=== PATIENT | male | born 1945 | race Caucasian/White ===

== ENCOUNTER 2022-02-07 18:23 | Emergency (ER) | payer MEDICARE, SELFPAY ==
[2022-02-07 18:57] VITALS: BP 119/58; PULSE 64; RESP 17; TEMP 37.4; O2SAT 95; BMI 34.4
--- NOTE | 2022-02-07 19:06 | HMH.EDUTC ---
[facility] Disposition Clinical Impression: Facial cellulitis, Abscess of face Disposition: Home, Self-Care Condition on Discharge: Good Instructions: Cellulitis, Boil Additional Instructions: Keep the wounds clean and dry. Follow up with your regular doctor. Take the antibiotics as directed and apply the topical antibiotics as directed. Watch the wounds for signs of worsening infection, such as worsening redness, drainage, swelling, etc. Any infection this close to your eyes and your brain can be dangerous. I recommend going to the ER if it is getting worse. GO TO THE ER FOR ANY WORSENING SYMPTOMS Prescriptions: Sulfamethoxazole/Trimethoprim [Bactrim DS tablet] 1 each PO BID 10 Days #20 tab Transmission Status: Received by [facility]/pharmacy #[id number] Mupirocin [Bactroban 2% Ointment 22gm tube] 1 applicatio TP TID 7 Days #1 gm Transmission Status: Received by [facility]/pharmacy #[id number] cephALEXin [cephALEXin 500mg capsule] 500 mg PO Q6H 10 Days #40 cap Transmission Status: Received by [facility]/pharmacy #[id number] Referrals: Provider,Referral, MD [Primary Care Provider] - Time of Disposition: 19:21 Medical Decision Making - Medical Records Medical records reviewed: No: I reviewed the patient's medical records. - Vaughn Inquiry Pt receiving controlled substance: No Vital Signs: 02/07/22 18:57 02/07/22 19:41 Temperature 99.4 F 99.4 F Temperature Source Oral Oral Pulse Rate 64 Pulse Rate [Left Radial] 64 Respiratory Rate 17 17 Blood Pressure 119/58 L Blood Pressure [Right Arm] 119/58 L Blood Pressure Mean [Right Arm] 78 02 Sat by Pulse Oximetry 95 Orders (Tests/Meds): ED MEDICATIONS Discontinued Medications Generic Name Dose Route Start Last Admin Trade Name Freq PRN Reason Stop Dose Admin Ceftriaxone Sodium 1 gm 02/07/22 19:14 02/07/22 19:29 Ceftriaxone 1gm Vial IM 02/07/22 19:15 1 gm ONCE ONE Administration Lidocaine HCl 0 ml 02/07/22 19:14 02/07/22 19:29 Lidocaine 1% 5ml Pf Vial IM 02/07/22 19:15 2 ml ONCE ONE Administration ORDERS Category Date Time Status Wound Culture and Gram Stain Stat Micro 02/07/22 19:15 Received [facility] HPI - General Stated complaint: rash on face Time Seen by Provider: 02/07/22 19:07 Description of Symptoms (Recalled from Triage Doc. by RN): patient comes in for rash that began last monday HEENT Symptoms (Recalled from RN notes): No Resp Symptoms (Recalled from RN notes): No Skin Symptoms (Recalled from RN notes): Yes MS Symptoms (Recalled from RN notes): No Functional Status (Recalled from RN notes): wnl - History of Present Illness Provider Complaint: He states that for the past 1 week he has had swelling and redness of his nose up to between his eyes. He denies any injury, but does state that this began after he was seen by his dentist. He denies any fever and chills. He denies that he is diabetic. - Related Data Previous Rx's Medication Instructions Recorded Mupirocin [Bactroban 2% Ointment 1 applicatio TP TID 7 Days #1 gm 02/07/22 22gm tube] Sulfamethoxazole/Trimethoprim 1 each PO BID 10 Days #20 tab 02/07/22 [Bactrim DS tablet] cephALEXin [cephALEXin 500mg 500 mg PO Q6H 10 Days #40 cap 02/07/22 capsule] Allergies Allergy/AdvReac Type Severity Reaction Status Date / Time INGREDIENT: NO KNOWN - NO Allergy Unknown Uncoded 08/15/17 15:34 KNOWN DRUG ALLERGY - Worker's Comp Is this a Worker's Comp case?: No [facility] History - Hepatitis A Screen Attestation statement:: This patient has been screened for Hepatitis A risk factors. I have reviewed the patient's past medical history: Yes ROS Obtained: Yes All systems reviewed & no additional complaints - Constitutional Constitutional: Denies chills, Denies fever(s) - Eyes Eyes: Denies blind spots, Denies blurry vision, Denies change in vision, Denies diplopia, Denies eye discharge, Denies itchy eyes - ENT Ears, Nose, Mouth, and Throat:
[2022-02-07 19:41] VITALS: BP 119/58; PULSE 64; RESP 17; TEMP 37.4
== END 2022-02-07 19:43 | disposition home or self-care (01) ==
PROVIDERS: Emergency Provider Nurse Practitioner Family
DX: L03.211 Cellulitis of face; L02.01 Cutaneous abscess of face
CPT/HCPCS: 87070; 87077; 87186; 87205; 96372; 99212; G0463; J0696

== ENCOUNTER 2022-02-09 18:57 | Emergency (ER) | payer MEDICARE, SELFPAY ==
[2022-02-09 18:59] VITALS: BP 111/67; PULSE 57; RESP 18; TEMP 36.6; O2SAT 94; BMI 34.4
--- NOTE | 2022-02-09 19:07 | ECG_ITS ---
APPROVED REPORT Exam: Resting ECG HR:58 bpm ECG Measurements Heart Rate 58 AXES AK 144 P 68 QRSd 79 QRS 66 QT 413 T 92 QTc 410 Conclusion SINUS BRADYCARDIA WITH SINUS ARRHYTHMIA NONSPECIFIC ST & T-WAVE ABNORMALITY BORDERLINE ECG UNCONFIRMED REPORT Electronically signed by : Jorge Sharp MD 02/11/2022 17:34:03
--- NOTE | 2022-02-09 19:35 | CT_ITS ---
PROCEDURE INFORMATION: Exam: CT Head Without Contrast Exam date and time: 02/09/2022 7:38 PM Age: 76 years old Clinical indication: Altered mental status/memory loss; Additional info: Altered mentation TECHNIQUE: Imaging protocol: Computed tomography of the head without contrast. Radiation optimization: All CT scans at this facility use at least one of these dose optimization techniques: automated exposure control; mA and/or kV adjustment per patient size (includes targeted exams where dose is matched to clinical indication); or iterative reconstruction. COMPARISON: No relevant prior studies available. FINDINGS: Brain: Moderate to severe volume loss. No acute intracranial hemorrhage. No midline shift or significant intracranial mass effect. 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 Cerebral ventricles: Ventriculomegaly is commensurate for degree of volume loss. Paranasal sinuses: [id number] paranasal sinus disease. Mastoid air cells: Visualized mastoid air cells are well aerated. Bones/joints: Unremarkable. No acute fracture. Soft tissues: Right periorbital and anterolateral scalp soft tissue swelling. There is left periorbital soft tissue swelling, however to a lesser degree. IMPRESSION: No acute intracranial abnormality.
[2022-02-09 19:43] LABS: Basophils # 0.2 K/mm3 (0-0.2); Basophils % 2.5 % (0.1-2.0); Eosinophils % 0.2 % (0.1-12.0); Hematocrit 43.3 % (42.0-52.0); Hemoglobin 14.6 g/dL (14.1-18.0); Lymphocytes # 1.3 K/mm3 (0.7-4.5); Lymphocytes % 22.2 % (10-50); Mean Corpuscular HGB Conc 33.7 g/dL (31.8-35.4); Mean Corpuscular Hemoglobin 31.8 pg (27.0-31.2); Mean Corpuscular Volume 94.2 fl (80-94); Mean Platelet Volume 9.6 fl (7.4-10.4); Monocytes # 0.4 K/mm3 (0.1-1.0); Monocytes % 5.9 % (1.7-9.3); Neutrophils % 69.1 % (37.0-80.0); Platelet Count 138 K/mm3 (142-424); Red Blood Count 4.59 M/mm3 (4.60-6.20); White Blood Count 5.9 K/mm3 (4.8-10.8)
[2022-02-09 19:48] LABS: Blood Urea Nitrogen 16 mg/dl (9-20); Calcium 8.6 mg/dl (8.4-10.2); Carbon Dioxide 25 mmol/L (22.0-30.0); Chloride 98 mmol/L (98-107); Creatinine Clearance Estimated 91 mL/min (50-200); Estimated Glomerular Filt Rate 65 ml/min (>60); GFR (African American) 79 ML/MIN (>60); Glucose 173 mg/dl (74-100); Magnesium 1.8 mg/dl (1.6-2.3); Sodium 131 mmol/L (136-145)
[2022-02-09 20:06] LABS: C-Reactive Protein 4.2 mg/L (0-4)
[2022-02-09 20:19] LABS: Troponin I < 0.01 ng/ml (0.00-0.034)
[2022-02-09 20:22] LABS: Procalcitonin 0.188 ng/mL (0.0-2.0); T4 (Thyroxine) 6.9 ug/dl (5.53-11.0)
[2022-02-09 20:36] LABS: Thyroid Stimulating Hormone 0.43 uIU/mL (0.465-4.68)
--- NOTE | 2022-02-09 20:53 | PC.NURSE ---
Pt tried multiple times to give urine sample and has been unable to.
--- NOTE | 2022-02-09 21:52 | HMH.EDWEAK ---
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 ocular complication detail: unspecified herpes zoster eye disease Qualified Code(s): B02.30 - Zoster ocular disease, unspecified Ingestion, drug, inadvertent or accidental Qualifiers: Encounter type: initial encounter Qualified Code(s): T50.901A - Poisoning by unspecified drugs, medicaments and biological substances, accidental (unintentional), initial encounter Disposition: Home, Self-Care Condition on Discharge: Good Instructions: DI for Shingles Additional Instructions: resume prev care Referrals: Chely Dumont [Primary Care Provider] - - Critical Care Critical Care Time: No Attestation: On 02/09/22, the high probability of a clinically significant, sudden or life threatening deterioration of the following system(s) required my full and direct attention, intervention and personal management. The time I documented below is in addition to time spent performing reported procedures but includes the following listed in this critical care notation. Medical Decision Making - Medical Records Medical records reviewed: Yes: I reviewed the patient's medical records. - Vaughn Inquiry Pt receiving controlled substance: No Vital Signs: 02/09/22 18:59 Temperature 97.9 F Temperature Source Oral Pulse Rate [Apical] 57 L Respiratory Rate 18 Blood Pressure [Right Arm] 111/67 Blood Pressure Mean [Right Arm] 81 Blood Pressure Source [Right Arm] Automatic Cuff Blood Pressure Position [Right Arm] Sitting 02 Sat by Pulse Oximetry 94 L Oxygen Delivery Method Room Air - Lab Data Lab results reviewed: Yes: I reviewed the patient's lab results. Lab Results 02/09/22 19:30: WBC 5.9, RBC 4.59 L, Hgb 14.6, Hct 43.3, MCV 94.2 H, MCH 31.8 H, MCHC 33.7, RDW 13.0, Plt Count 138 L, MPV 9.6, Neut % (Auto) 69.1, Lymph % (Auto) 22.2, [place] % (Auto) 5.9, Eos % (Auto) 0.2, Baso % (Auto) 2.5 H, Neut # (Auto) 4.0, Lymph # (Auto) 1.3, [place] # (Auto) 0.4, Eos # (Auto) 0.0, Baso # (Auto) 0.2, ESR 15 02/09/22 19:30: Sodium 131 L, Potassium 4.0, Chloride 98, Carbon Dioxide 25, Anion Gap 12.0, BUN 16, Creatinine 1.10, Estimated Creat Clear 91, Estimated GFR 65, Est GFR ( Amer) 79, Glucose 173 H, Calcium 8.6, Magnesium 1.8, Troponin I < 0.01, C-Reactive Protein 4.2 H, Procalcitonin 0.188, TSH 0.43 L, Thyroxine (T4) 6.9 Result diagrams: 02/09/22 19:30 02/09/22 19:30 Orders (Tests/Meds): ED MEDICATIONS Generic Name Dose Route Start Last Admin Trade Name Freq PRN Reason Stop Dose Admin Sodium Chloride 1,000 mls @ 999 mls/hr 02/09/22 19:45 02/09/22 20:04 Sod Chlor 0.9% 1000ml Bag IV 02/09/22 20:45 999 mls/hr .Q1H1M CASSANDRA Administration ORDERS Category Date Time Status Troponin I Q3H Lab 02/09/22 22:45 Ordered Troponin I Q3H Lab 02/10/22 01:45 Ordered UA [Urinalysis and Microscopic] Stat Lab 02/09/22 20:10 Ordered - CT Data CT Scan: Head Time Received: 22:[address] Reviewed: Yes: I have viewed the radiologist's interpretation Preliminary Findings: Normal/NAD - ECG Data Tracing #1 Normal Sinus Rhythm: Yes Ischemic changes: non-specific ST-T wave changes Medical Decision Narrative: stable exam with stable labs and ct and poison control cleared pt Weakness HPI - General Chief complaint: Weakness Stated complaint: Confused, unstable Time Seen by Provider: 02/09/22 21:52 Mode of Arrival: Ambulatory Source of Information: Patient, Relative, Medical Record Limitations: No Limitations Description of Symptoms (Recalled from ER Triage Doc. by RN): pt has right eye swelling with nose wound. dx c shingles monday at [facility]. given abx and steroids. Since then pt has had increased confusion and has difficulty walking. Patient also took his 11 am medications twice today because he is confused as to the time of day and forgot he had already taken them (flomax 0.4mg, levothyroxine 50
[2022-02-09 21:57] LABS: Erythrocyte Sedimentation Rate 15 mm/hr (0-20)
--- NOTE | 2022-02-09 22:09 | PC.NURSE ---
Spoke with Poison control to confirm double dosage of patients 1100 medications, patient took a 2nd dose of flomax, levothyroxine, nabutomine, bisoproll, rosuvastatin and duloxetine, however, patient remains within safe dosing levels. Poison control said that if patient can pass a po challenge patient and exhibits no symptoms he should be safe to dc home from their standpoint.
[2022-02-09 22:41] VITALS: BP 110/60; PULSE 60; RESP 18; TEMP 36.8; O2SAT 99
== END 2022-02-09 22:43 | disposition home or self-care (01) ==
PROVIDERS: Emergency Medicine; Emergency Provider Emergency Medicine; PCP Family Medicine
DX: T50.901A Poisoning by unspecified drugs, medicaments and biological substances, accidental (unintentional), initial encounter (principal); R53.1 Weakness; R41.0 Disorientation, unspecified; R26.2 Difficulty in walking, not elsewhere classified; B02.30 Zoster ocular disease, unspecified
CPT/HCPCS: 70450; 80048; 83735; 84145; 84436; 84443; 84484; 85025; 85651; 86140; 93005; 96360; 99284

== ENCOUNTER 2022-11-23 12:32 | Observation (INO) | payer MEDICARE, SELFPAY ==
[2022-11-23] VITALS (17 sets, daily range): BP systolic 89–147; BP diastolic 25–79; PULSE 57–74; RESP 18–20; TEMP 36.6–39.2; O2SAT 93–100; BMI 36.8; BMI 34.8
[2022-11-23 12:49] LABS: Microscopic, Urine URINE MICROSCOPIC (MICROSCOPIC)
[2022-11-23 12:53] LABS: Appearance,Urine CLEAR (Clear); Blood, Urine 3+ (Negative); Color,Urine YELLOW (Yellow); Glucose,Urine (UA) Negative (Negative); Ketones,Urine Negative (Negative); Leukocyte Esterase,Urine 2+ (Negative); Nitrate,Urine POSITIVE (Negative); Protein,Urine 1+ (Negative); Specific Gravity, Urine 1.025 (1.005-1.030)
[2022-11-23 13:14] LABS: Bilirubin,Urine 1+ (Negative)
[2022-11-23 13:16] LABS: Bacteria,Urine 3+ /lpf; RBC,Urine 50-100 #/hpf (0-3); Squamous Epithelial Cell,Urine Occasional #/hpf (0-5); WBC,Urine 50-100 #/hpf (0-3)
[2022-11-23 13:16] LABS: Basophils # 0.1 K/mm3 (0-0.2); Basophils % 0.5 % (0.1-2.0); Eosinophils # 0.1 K/mm3 (0.0-0.4); Eosinophils % 0.8 % (0.1-12.0); Hematocrit 46.4 % (42.0-52.0); Hemoglobin 14.9 g/dL (14.1-18.0); Lymphocytes # 1.1 K/mm3 (0.7-4.5); Lymphocytes % 6.1 % (10-50); Mean Corpuscular HGB Conc 32.2 g/dL (31.8-35.4); Mean Corpuscular Hemoglobin 30.6 pg (27.0-31.2); Monocytes # 0.5 K/mm3 (0.1-1.0); Neutrophils # 16.1 K/mm3 (1.8-7.8); Neutrophils % 89.7 % (37.0-80.0); Platelet Count 237 K/mm3 (142-424); Red Blood Count 4.88 M/mm3 (4.60-6.20); Red Cell Distribution Width 13.3 % (11.5-17.5)
[2022-11-23 13:19] LABS: MANUAL DIFFERENTIAL MANUAL DIFFERENTIAL (MANUAL DIFF)
--- NOTE | 2022-11-23 13:19 | CT_ITS ---
FINAL REPORT TECHNIQUE: Thin section axial images were obtained from skull base to vertex without contrast. Coronal reconstruction images were obtained from the axial data. Exam was performed using dose reduction technique. CLINICAL HISTORY: ams, recent surgery COMPARISON: 02/09/2022 FINDINGS: There is age-appropriate atrophy. There is no mass effect or midline shift. There is no intracranial hemorrhage. There is no hydrocephalus. The mild periventricular hypodensities are stable. There is an old periventricular/left basal ganglia infarct. The basilar cisterns are preserved. The posterior fossa is without acute abnormality. There is no acute osseous abnormality. There is a mucous retention cyst or polyp in the left maxillary sinus. IMPRESSION: No acute intracranial abnormality. Chronic appearing findings as detailed above. Reviewed, Interpreted and Dictated by Tuyet Eric MD Transcribed by Kalee Iglesias Authenticated and . [facility]
--- NOTE | 2022-11-23 13:19 | CT_ITS ---
FINAL REPORT TECHNIQUE: Thin section axial images were obtained through the abdomen after intravenous contrast. Reconstruction images were obtained from the axial data. Exam was performed using dose reduction techniques. CLINICAL HISTORY: post-op fever prostate procedure with dr mercedes at [facility] last karla and placed a oliveros after the procedure. daughter states pt has been altered and not talking with increased weakness. denies n/v/d or pain FINDINGS: The lung bases are clear. The liver is homogeneous. The gallbladder is present. The spleen, right adrenal, and pancreas are unremarkable. There is left adrenal hyperplasia. There is no hydronephrosis or solid renal mass. Abdominal GI tract is without acute abnormality. There is no abdominal lymphadenopathy or ascites. There is no evidence of small-bowel obstruction. Oliveros catheter seen in the urinary bladder. The prostate has been resected. The pelvic portions of the GI tract are without acute abnormality. The appendix is not visualized. There is abnormal attenuation surrounding the urinary bladder and presacral edema. There is abnormal soft tissue density along the external iliac arteries bilaterally, slightly greater in density than simple fluid. This could be postoperative hematomas, lymphadenopathy is less likely however there are enlarged right pelvic lymph nodes including a 17 mm obturator lymph node and a 2.1 cm right common femoral lymph node. These could be neoplastic or reactive. No acute osseous abnormalities identified. IMPRESSION: Postoperative changes from presumed prostatectomy with abnormal attenuation in the pelvis surrounding the bladder, could be postoperative but cystitis is not excluded. Possibly evolving hematomas/seromas along the pelvic side wall bilaterally. Recommend short-term follow-up CT. Right pelvic adenopathy, metastatic disease is not excluded. Reviewed, Interpreted and Dictated by Tuyet Eric MD Transcribed by Kalee Iglesias Authenticated and [facility]
[2022-11-23 13:26] LABS: Alanine Aminotransferase 34 U/L (12-78); Albumin Level 4.1 g/dl (3.5-5.0); Albumin/Globulin Ratio 1.3 (1.1-1.8); Alkaline Phosphatase 75 U/L (38-126); Aspartate Amino Transferase 37 U/L (17-59); Bilirubin,Total 1.3 mg/dl (0.2-1.3); Blood Urea Nitrogen 21 mg/dl (9-20); Calcium 8.4 mg/dl (8.4-10.2); Carbon Dioxide 26 mmol/L (22.0-30.0); Chloride 99 mmol/L (98-107); Creatinine Clearance Estimated 96 mL/min (50-200); Estimated Glomerular Filt Rate 73 ml/min (>60); GFR (African American) 88 ML/MIN (>60); Globulin 3.2 g/dL (1.3-3.2); Glucose 161 mg/dl (74-100); Lymphocytes % 4 % (10-50); Monocytes % 5 % (2-9); Neutrophils % 91 % (42-76); Platelet Estimate Normal; RBC Morphology Normal; Sodium 135 mmol/L (136-145); Total Cells Counted 100; Total Protein,Serum 7.3 g/dl (6.3-8.2)
[2022-11-23 13:27] LABS: Lactic Acid 1.7 mmol/L (0.7-2.1)
--- NOTE | 2022-11-23 13:50 | PC.NURSE ---
pt to radiology
--- NOTE | 2022-11-23 14:02 | PC.NURSE ---
pt back from ct
--- NOTE | 2022-11-23 14:10 | HMH.EDGENADL ---
Discharge Plan Disposition Chief Complaint: Weakness Clinical Impressions Clinical Impression: Acute UTI Discharge ED Provider: Evin De La Cruz General Adult HPI General Chief complaint: Weakness Stated complaint: Prostate procedure 11/07 dizzy, possible UTI Time Seen by Provider: 11/23/22 12:37 Mode of Arrival: Wheelchair Source of Information: Patient and Relative Limitations: Altered Mental Status Description of Symptoms (Recalled from ER Triage Doc. by RN): pt to ed accompanied by children. daughter at the bedside states pt had a prostate procedure with dr mercedes at [facility] last monday and placed a oliveros after the procedure. daughter states pt has been altered and not talking with increased weakness. denies n/v/d or pain. History of Present Illness HPI narrative: 77yo M presents to the ER secondary to altered mental status, decreased speaking, fever and chills. Patient underwent prostate surgery 1-1/2 weeks ago at [facility]. Family at bedside reports the patient was normal last night. No fall or other trauma. No treatment prior to arrival. Related Data Previous Rx's Medication Instructions Recorded cephalexin 500 mg capsule 500 mg PO Q6H 10 days #40 caps 02/07/22 mupirocin 2 % topical ointment 1 applicatio topical TID 7 days ##1 02/07/22 sulfamethoxazole 800 1 each PO BID 10 days #20 tabs 02/07/22 mg-trimethoprim 160 mg tablet Allergies Allergy/AdvReac Type Severity Reaction Status Date / Time INGREDIENT: NO KNOWN - NO Allergy Unknown Uncoded 08/15/17 15:34 KNOWN DRUG ALLERGY [facility] Disclaimer: The information contained in this section may have been updated after the patient was seen, as this information can be updated by other users. Social History Smoking Status: Never smoker alcohol intake: never current occupational status: employed Travel in the last 8 weeks: None ROS Obtained: Yes Systems reviewed as appropriate & no additional complaints except as documented Physical Exam General General appearance: alert and in no apparent distress Head Head exam: atraumatic Neck Neck exam: Present trachea midline Chest Chest inspection: Present normal inspection Respiratory Respiratory exam: Present normal lung sounds bilaterally Cardiovascular Cardiovascular exam: Present regular rate and normal rhythm Abdominal Exam Abdominal exam: Present soft Neurological Exam Neurological exam: Present alert and other (Patient follows commands.) Skin Skin exam: Present warm and dry Medical Decision Making Vaughn Inquiry Pt receiving controlled substance: No Vital Signs: 11/23/22 12:46 11/23/22 12:43 11/23/22 12:58 Temperature 102.5 F H Temperature Source Oral Pulse Rate 72 64 Pulse Rate [Left Radial] 73 Respiratory Rate 20 Blood Pressure 139/76 114/76 Blood Pressure [Right Arm] 147/65 H Blood Pressure Mean Blood Pressure Mean [Right Arm] 92 Blood Pressure Source 02 Sat by Pulse Oximetry 95 98 100 Oxygen Delivery Method Room Air Room Air Room Air 11/23/22 13:00 11/23/22 13:30 11/23/22 13:48 Temperature Temperature Source Pulse Rate 62 62 68 Pulse Rate [Left Radial] Respiratory Rate Blood Pressure 120/79 120/63 Blood Pressure [Right Arm] Blood Pressure Mean 82 Blood Pressure Mean [Right Arm] Blood Pressure Source 02 Sat by Pulse Oximetry 99 100 100 Oxygen Delivery Method Room Air 11/23/22 14:36 11/23/22 14:41 11/23/22 14:45 Temperature Temperature Source Pulse Rate 57 L 72 Pulse Rate [Left Radial] Respiratory Rate Blood Pressure 89/25 L 107/52 L 126/70 Blood Pressure [Right Arm] Blood Pressure Mean 46 70 Blood Pressure Mean [Right Arm] Blood Pressure Source Manual Cuff/ Auscultation 02 Sat by Pulse Oximetry 93 L 93 L Oxygen Delivery Method 11/23/22 15:01 11/23/22 15:31 11/23/22 16:01 Temperature Temperature Source
--- NOTE | 2022-11-23 14:35 | PC.NURSE ---
called radiology for updated scan read. no reads at this time per radiology
--- NOTE | 2022-11-23 14:55 | PC.NURSE ---
Updated pt and family that we are waiting on scan reads. PT requesting something to drink. Unable to drink at this time per MD.
--- NOTE | 2022-11-23 15:01 | PC.NURSE ---
radiology states that the ct are in lock status
--- NOTE | 2022-11-23 15:06 | PC.NURSE ---
swetha roudned on pt
--- NOTE | 2022-11-23 15:07 | PC.NURSE ---
Pt and family updated that radiology is reading the scans at this time. PT states that when they moved him in radiology that they were rough with him. Talked with radiology who states that when moving tables it can be rough but nothing different from other pts was done. Updated pt and family on this information.
--- NOTE | 2022-11-23 15:29 | PC.NURSE ---
fu on scans. radiology states that the ct head is completed will send through. no results on ct abd/pelvis, in lock status
--- NOTE | 2022-11-23 15:48 | PC.NURSE ---
called [facility] per ER Doctor to speak with Dr. Andrey Tinajero about this pt. iformation was given and advised they would call us back.
--- NOTE | 2022-11-23 15:49 | PC.NURSE ---
went to swab pt for possible transfer to [facility] but pt refused swab
--- NOTE | 2022-11-23 16:20 | PC.NURSE ---
[facility] called with Dr Tinajero to speak with ER Doctor
--- NOTE | 2022-11-23 16:30 | PC.NURSE ---
bisi gibbs speaking with omar
--- NOTE | 2022-11-23 16:33 | PC.NURSE ---
calling house for bed assignment
--- NOTE | 2022-11-23 16:38 | PC.NURSE ---
speaking to house about pt refusing covid swab
--- NOTE | 2022-11-23 16:47 | PC.NURSE ---
calling to speak to urologist who preformed surgery on pt
--- NOTE | 2022-11-23 16:47 | PC.NURSE ---
updated pt that house and infection control states pt will have be treat as they are positive since he refuses covid swab, pt vistiors will have to stay in room once they arrived to room and staff would have to wear ppe
--- NOTE | 2022-11-23 16:50 | PC.NURSE ---
canceled consult with dr mercedes, urologist at [facility] pt has agreed to stay at [facility] on medsurg. calling to update house about plan with pt
--- NOTE | 2022-11-23 16:52 | PC.NURSE ---
spoke with family and pt who states he will not test for covid. spoke with powerhouse mechanic supervisor who states criteria for admission without covid swab. spoke with family and pt who agree to plan.
--- NOTE | 2022-11-23 17:10 | PC.NURSE ---
report called to alissa huff rn
--- NOTE | 2022-11-23 17:15 | PC.NURSE ---
arrived by stretcher from ED
--- NOTE | 2022-11-23 19:40 | EXP.HP ---
History of Present Illness *Admission Date: 11/23/22 *Reason for visit:: sepsis, uti *History of present illness: Mr. Larios is a 77-year-old male with history of prostate cancer, status post prostatectomy last Monday. Presented to the ER today because of fever and altered mental status. Daughter noted that he was not acting himself and felt very warm but was sweaty. Brought him to the ER because she was concern for UTI. He has had an indwelling catheter since his procedure. Urine has grossly changed in the past 2 to 3 days in color and clarity. On arrival to the ER, he had confusion. Preferred to stay in his wheelchair. Followed commands but was not able to provide significant history. Initial work-up with CBC, CMP, UA, lactic acid, CT head noted to have some free air in his abdomen. CBC remarkable for leukocytosis of 18,000. Patient tachycardic and febrile to 102.5 in the ER. Meeting sepsis criteria. Urine remarkable for pyuria and leuk esterase. Started on IV antibiotics and fluids in the ER. Concern for sepsis secondary to urinary source given his postop status and indwelling catheter. Case was discussed with patient's surgeon at [facility], recommend admission for medical management. Patient does have an appointment scheduled on Monday with his urologist that they recommended keeping if he is stable at that time. Medicine consulted for admission for further treatment. After arriving to the floor. Patient is more alert and oriented. Able to give some history and review of systems. Family states he is doing much better since starting fluids and antibiotics. Afebrile at this time. Tolerating p.o. intake. Stable on room air. [facility] Disclaimer: The information contained in this section may have been updated after the patient was seen, as this information can be updated by other users. Medical History (Updated 11/23/22 @ 19:46 by Ender Armas MD) Hyperlipidemia Hypertension Hypothyroid Prostate CA Surgical History (Updated 11/23/22 @ 19:46 by Ender Armas MD) H/O adenoidectomy H/O inguinal hernia repair H/O prostatectomy H/O right heart catheterization Hx of appendectomy Hx of tonsillectomy Family History Brain cancer Family history of cancer Social History Smoking Status: Never smoker alcohol intake: never current occupational status: retired Travel in the last 8 weeks: None Review of Systems Review of Systems Review of systems (narrative): 14 point review of systems performed, pertinent positives and negatives as per HPI Meds Home Medications and Allergies Home Medications Medication Instructions Recorded Confirmed Type allopurinol 100 mg tablet 100 mg PO DAILY mood 11/23/22 11/23/22 History bisoprolol fumarate 5 mg tablet 5 mg PO DAILY blood pressure 11/23/22 11/23/22 History duloxetine 60 mg capsule,delayed 60 mg PO DAILY per md 11/23/22 11/23/22 History release hydrocodone 7.5 mg-acetaminophen 1 tab PO Q6 Pain 11/23/22 11/23/22 History 325 mg tablet levothyroxine 50 mcg tablet 50 mcg PO DAILY thyroid 11/23/22 11/23/22 History losartan 25 mg tablet 25 mg PO DAILY blood pressure 11/23/22 11/23/22 History rosuvastatin 20 mg tablet 20 mg PO DAILY Cholesterol 11/23/22 11/23/22 History tamsulosin 0.4 mg capsule 0.4 mg PO DAILY prostate 11/23/22 11/23/22 History New Prescriptions to Start Prescriptions: Allergies Allergy/AdvReac Type Severity Reaction Status Date / Time INGREDIENT: NO KNOWN - NO Allergy Unknown Uncoded 08/15/17 15:34 KNOWN DRUG ALLERGY Exam Data for Last 24 hours Vital signs and Labs for Last 24 Hours: Temp Pulse Resp BP Pulse Ox 97.9 F 61 20 112/60 96 11/23/22 17:39 11/23/22 17:39 11/23/22 17:39 11/23/22 17:39 11/23/22 17:27 Laboratory Results - last 24 hr 11/23/22 12:41: Urine Color Yellow, Urine Appearance Clear,
[2022-11-24] VITALS: BP 133/55; PULSE 60; RESP 18; TEMP 37.1; O2SAT 98
[2022-11-24 04:00] VITALS: BP 142/57; PULSE 64; RESP 18; TEMP 37.1; O2SAT 95; BMI 34.9
[2022-11-24 07:09] LABS: Monocytes # 0.7 K/mm3 (0.1-1.0); Neutrophils # 14.2 K/mm3 (1.8-7.8)
[2022-11-24 07:14] LABS: Basophils # 0.1 K/mm3 (0-0.2); Basophils % 0.4 % (0.1-2.0); Eosinophils # 0.2 K/mm3 (0.0-0.4); Eosinophils % 1.2 % (0.1-12.0); Hematocrit 40.4 % (42.0-52.0); Lymphocytes # 1.7 K/mm3 (0.7-4.5); Lymphocytes % 10.3 % (10-50); Mean Corpuscular HGB Conc 31.7 g/dL (31.8-35.4); Mean Corpuscular Hemoglobin 30.5 pg (27.0-31.2); Mean Corpuscular Volume 96.2 fl (80-94); Mean Platelet Volume 9.2 fl (7.4-10.4); Monocytes % 3.8 % (1.7-9.3); Neutrophils % 84.3 % (37.0-80.0); Platelet Count 166 K/mm3 (142-424); Red Cell Distribution Width 13.4 % (11.5-17.5); White Blood Count 16.9 K/mm3 (4.8-10.8)
[2022-11-24 07:15] LABS: Hemoglobin 12.8 g/dL (14.1-18.0); MANUAL DIFFERENTIAL MANUAL DIFFERENTIAL (MANUAL DIFF)
[2022-11-24 07:16] LABS: Chloride 100 mmol/L (98-107); Potassium 3.6 mmoL/L (3.5-5.1); Sodium 132 mmol/L (136-145)
[2022-11-24 07:19] LABS: Alanine Aminotransferase 22 U/L (12-78); Albumin Level 3.4 g/dl (3.5-5.0); Albumin/Globulin Ratio 1.2 (1.1-1.8); Alkaline Phosphatase 60 U/L (38-126); Anion Gap 7.6 mEq/L (5-15); Aspartate Amino Transferase 24 U/L (17-59); Bilirubin,Total 0.9 mg/dl (0.2-1.3); Blood Urea Nitrogen 27 mg/dl (9-20); Calcium 7.9 mg/dl (8.4-10.2); Carbon Dioxide 28 mmol/L (22.0-30.0); Creatinine Clearance Estimated 81 mL/min (50-200); Estimated Glomerular Filt Rate 59 ml/min (>60); GFR (African American) 71 ML/MIN (>60); Globulin 2.9 g/dL (1.3-3.2); Glucose 126 mg/dl (74-100); Total Protein,Serum 6.3 g/dl (6.3-8.2)
[2022-11-24 07:20] LABS: Magnesium 2.2 mg/dl (1.6-2.3)
--- NOTE | 2022-11-24 07:44 | HMH.PHAINT1 ---
Pharmacy Intervention Comments: Reconciled patient's medication history using pharmacy fill records and patient/family interview.
[2022-11-24 07:49] VITALS: BP 137/88; PULSE 64; RESP 17; TEMP 36.8; O2SAT 94
[2022-11-24 08:26] LABS: Lymphocytes % 8 % (10-50); Monocytes % 4 % (2-9); Neutrophils % 88 % (42-76); Platelet Estimate Normal; RBC Morphology Normal; Total Cells Counted 100
--- NOTE | 2022-11-24 08:27 | EXP.DC.SUM ---
General Admission date:: 11/23/22 HPI HPI HPI: Mr. Larios is a 77-year-old male with history of prostate cancer, status post prostatectomy last Monday. Presented to the ER today because of fever and altered mental status. Daughter noted that he was not acting himself and felt very warm but was sweaty. Brought him to the ER because she was concern for UTI. He has had an indwelling catheter since his procedure. Urine has grossly changed in the past 2 to 3 days in color and clarity. On arrival to the ER, he had confusion. Preferred to stay in his wheelchair. Followed commands but was not able to provide significant history. Initial work-up with CBC, CMP, UA, lactic acid, CT head noted to have some free air in his abdomen. CBC remarkable for leukocytosis of 18,000. Patient tachycardic and febrile to 102.5 in the ER. Meeting sepsis criteria. Urine remarkable for pyuria and leuk esterase. Started on IV antibiotics and fluids in the ER. Concern for sepsis secondary to urinary source given his postop status and indwelling catheter. Case was discussed with patient's surgeon at [facility], recommend admission for medical management. Patient does have an appointment scheduled on Monday with his urologist that they recommended keeping if he is stable at that time. Medicine consulted for admission for further treatment. After arriving to the floor. Patient is more alert and oriented. Able to give some history and review of systems. Family states he is doing much better since starting fluids and antibiotics. Afebrile at this time. Tolerating p.o. intake. Stable on room air. Hospital Course Hospital Course Hospital Course: Patient was admitted with UTI and encephalopathy. Patient received ceftriaxone x2 2 g daily with significant improvement of his encephalopathy. He is back to baseline this morning. Removed his [place] catheter and replaced it with a new 1 as his outpatient urologist requested keeping it for 1 week. He will be following up tomorrow morning with his urologist and is requesting discharge. Given the improvement of his symptoms and underlying condition will transition him to p.o. cefpodoxime 200 bid 7d for gram-negative pillo urinary tract infection. We will follow-up sensitivities and specificities for alteration of antibiotics if needed Exam Data for Last 24 hours Vital signs and Labs for Last 24 Hours: Temp Pulse Resp BP Pulse Ox 98.3 F 64 17 137/88 94 L 11/24/22 07:49 11/24/22 07:49 11/24/22 07:49 11/24/22 07:49 11/24/22 07:49 Laboratory Results - last 24 hr 11/23/22 12:41: Urine Color Yellow, Urine Appearance Clear, Urine pH 6.0, Ur Specific [place] 1.025, Urine Protein 1+, Urine Glucose (UA) Negative, Urine Ketones Negative, Urine Blood 3+, Urine Nitrate Positive, Urine Bilirubin 1+ A, Urine Urobilinogen 1.0, Ur Leukocyte Esterase 2+ A, Urine RBC 50-100, Urine WBC 50-100, Ur Squamous Epith Cells Occasional, Urine Bacteria 3+ 11/23/22 13:00: WBC 18.0 H, RBC 4.88, Hgb 14.9, Hct 46.4, MCV 95.0 H, MCH 30.6, MCHC 32.2, RDW 13.3, Plt Count 237, MPV 9.0, Neut % (Auto) 89.7 H, Lymph % (Auto) 6.1 L, [place] % (Auto) 3.0, Eos % (Auto) 0.8, Baso % (Auto) 0.5, Neut # (Auto) 16.1 H, Lymph # (Auto) 1.1, [place] # (Auto) 0.5, Eos # (Auto) 0.1, Baso # (Auto) 0.1, Total Counted 100, Neutrophils % (Manual) 91 H, Lymphocytes % (Manual) 4 L, Monocytes % (Manual) 5, Platelet Estimate Normal, RBC Morphology Normal 11/23/22 13:00: Sodium 135 L, Potassium 4.0, Chloride 99, Carbon Dioxide 26, Anion Gap 14.0, BUN 21 H, Creatinine 1.00, Estimated Creat Clear 96, Estimated GFR 73, Est GFR ( Amer) 88, Glucose 161 H, Calcium 8.4, Total Bilirubin 1.3, AST 37, ALT 34, Alkaline Phosphatase 75, Total Protein 7.3, Albumin 4.1, Globulin 3.2, Albumin/Globulin Ratio 1.3 11/23/22 13:00: Lactate 1.7 11/24/22 06:55: WBC 16.9 H, RBC 4.20 L, Hgb 12.8 L D, Hct 40.4 L, MCV 96.2 H, MCH 30.5, MCHC 31.7 L, RDW 13.4, Plt Count 166 D, MPV 9.2, Neut % (Auto) 84.3
--- NOTE | 2022-11-24 08:56 | PC.NURSE ---
patient wishes to hold off on morning meds until his bottles from home arrive
[2022-11-24 13:55] VITALS: TEMP 38.3
[2022-11-24 14:45] VITALS: TEMP 38.8
--- NOTE | 2022-11-24 14:45 | PC.NURSE ---
md is aware of patient temp. given tylenol, with increase in temp 30 mins later. md stated to give a 400mg ibuprofen now. patient will be discharged on antibiotics, and educated on fever control. changed dressing to abdomen. placed telfa and tegaderm over small spot that has tiny amount of blood.
--- NOTE | 2022-11-24 15:02 | HMH.PHAINT1 ---
Pharmacy Intervention Comments: Counseled patient and family on new discharge medication cefpodoxime. Patient and family expressed understanding of medication indication, dose, route, frequency, and side effects.
== END 2022-11-24 15:48 | disposition home or self-care (01) ==
LOC: ER 12:57 → 2ND 17:23
PROVIDERS: Admitting Provider Internal Medicine Adolescent Medicine; Emergency Provider Family Medicine; PCP Family Medicine; Visit Provider Internal Medicine Adolescent Medicine
DX: N39.0 Urinary tract infection, site not specified (principal); T83.511A Infection and inflammatory reaction due to indwelling urethral catheter, initial encounter; I10 Essential (primary) hypertension; E78.5 Hyperlipidemia, unspecified; C61 Malignant neoplasm of prostate; E03.9 Hypothyroidism, unspecified; Z79.899 Other long term (current) drug therapy
CPT/HCPCS: G0378; 36415; 70450; 74177; 80053; 81001; 83605; 83735; 85007; 85025; 87040; 87086; 87088; 87186; 99291; J0696; Q9967